=== PATIENT | female | born 1945 | race Caucasian/White ===

== ENCOUNTER 2022-04-30 13:33 | Emergency (ER) | payer MEDICARE, MEDICAID ==
[~2022-04-30] VITALS: Ht 175.3 cm; Wt 90.7 kg
[~2022-04-30 13:33] MED LIST: ACET-1697 PO; ASCO500C14 PO; BISA5TAB PO; FOLI0.8T PO; GABA-488 PO; HYDR-3456 PO; HYDR-700 PO; LVT.1T PO; PARO40TA2 PO; PRIM50TA26 PO; SIMV20TA3 PO; TR1C15 TOP
--- NOTE | 2022-04-30 13:52 | ED Abdominal Pain ---
General Stated Complaint: ABD PAIN Source of Information: Patient Exam Limitations: No Limitations History of Present Illness Date Seen by Provider: Apr 30, 2022 Time Seen by Provider: 13:40 Initial Comments 77-year-old female presents to the emergency department today for epigastric abdominal pain x8 months. She describes it as constant aching sensation in her epigastric region without radiation. No aggravating factors but does states she usually "eat some crackers" and it helps. This has not helped today which was the reason for her presentation to the emergency department. She does endorse some loose stools for the last couple of days but is only going a couple of times per day. No nausea or vomiting. She has been seeing her primary care doctor for it and she states he "just gives me more pills." She states she has not had a CT scan or upper endoscopy to further evaluate. For the last couple of months she has been taking ibuprofen daily for some back pain. She is taking 400 mg 3 times a day. She denies any urinary or vaginal symptoms. She has had her gallbladder removed. Allergies and Home Medications Allergies Coded Allergies: No Known Drug Allergies (Unverified , 11/13/14) Patient Home Medication List Home Medication List Reviewed: Yes Acetaminophen (Acetaminophen) 500 Mg Tablet, 500 MG PO Q4H PRN for PAIN, (Reported) Entered as Reported by: ALCIRA FROST on 11/13/14 1336 Ascorbic Acid (Vitamin C) 500 Mg Capsule.sa, 500 MG PO DAILY, (Reported) Entered as Reported by: ALCIRA FROST on 11/13/14 1336 Bisacodyl (Bisacodyl Laxative) 5 Mg Tablet.dr, 5 MG PO DAILY PRN for CONSTIPATION, (Reported) Entered as Reported by: ALCIRA FROST on 11/13/14 1336 Folic Acid (Folic Acid) 0.8 Mg Tablet, 0.8 MG PO DAILY, (Reported) Entered as Reported by: ALCIRA FROST on 11/13/14 1336 Gabapentin (Gabapentin) 300 Mg Capsule, 300 MG PO BID, (Reported) Entered as Reported by: ALCIRA FROST on 11/13/14 1336 Hydrocodone/Acetaminophen (Vicodin Es 7.5-300 mg Tablet) 1 Each Tablet, 1 TAB PO Q4-6HR PRN for PAIN Prescribed by: LORIN HUTCHISON on 11/23/14 1050 Hydroxyzine Hcl (Hydroxyzine 25 Mg Tablet) 25 Mg Tablet, 25 MG PO BID PRN for ANXIETY, (Reported) Entered as Reported by: ALCIRA FROST on 11/13/14 1336 Levothyroxine Sodium (Levothyroxine 100 Mcg Tab) 100 Mcg Tablet, 100 MCG PO DAILY, (Reported) Entered as Reported by: ALCIRA FROST on 11/13/14 1336 Paroxetine Hcl (Paroxetine Hcl) 40 Mg Tablet, 40 MG PO DAILY, (Reported) Entered as Reported by: ALCIRA FROST on 11/13/14 1336 Primidone (Primidone) 50 Mg Tablet, 150 MG PO BID, (Reported) Entered as Reported by: ALCIRA FROST on 11/13/14 1336 Simvastatin (Simvastatin) 20 Mg Tablet, 20 MG PO HS, (Reported) Entered as Reported by: ALCIRA FROST on 11/13/14 1336 Triamcinolone Acet (Triamcinolone 0.1% Cream) 15 Gm Cr, 0 TOP BID PRN PRN for RASH, (Reported) Entered as Reported by: ALCIRA FROST on 11/13/14 1336 Review of Systems Review of Systems Constitutional: no symptoms reported EENTM: No Symptoms Reported Respiratory: No Symptoms Reported Cardiovascular: No Symptoms Reported Gastrointestinal: Abdominal Pain Genitourinary: No Symptoms Reported Musculoskeletal: no symptoms reported Skin: no symptoms reported Psychiatric/Neurological: No Symptoms Reported Endocrine: No Symptoms Reported Hematologic/Lymphatic: No Symptoms Reported Past Mcmdbia-Fuddct-Csizpc Hx Patient Social History Tobacco Use?: No Use of E-Cig and/or Vaping dev: No Substance use?: No Alcohol Use?: No Past Medical History Arthritis Hypothyroidsim Cataract Anxiety, Depression Family Medical History Reviewed Nursing Family Hx No Pertinent Family Hx Physical Exam Vital Signs Vital Signs - First Documented 04/30/22 13:35 Temp 35.8 Pulse 76 Resp 18 B/P (MAP) 130/65 (86) O2 Delivery Room Air Capillary Refill : Height/Weight/BMI Height: 5'9.00" Weight: 197lbs. oz. [id number]; BMI Method: General Appearance: WD/WN, no apparent distress HEENT: normal ENT inspection, pharynx normal Neck: non-tender, supple Respiratory: chest non-tender, lungs clear, normal breath sounds, no respiratory distress, no accessory muscle use Cardiovascular: regular rate, rhythm, no edema, no murmur Gastrointestinal: normal bowel sounds, soft, no organomegaly, tenderness (Epigastric voluntary guarding. No rebound tenderness. No mass organomegaly. No skin changes.) Progress/Results/Core Measures Results/Orders Lab Results Laboratory Tests Test 04/30/22 13:55 Range/Units White Blood Count 5.8 4.3-11.0 10^3/uL Red Blood Count 4.19 3.80-5.11 10^6/uL Hemoglobin 14.3 11.5-16.0 g/dL Hematocrit 40 35-52 % Mean Corpuscular Volume 96 80-99 fL Mean Corpuscular Hemoglobin 34 25-34 pg Mean Corpuscular Hemoglobin Concent 36 32-36 g/dL Red Cell Distribution Width 12.5 10.0-14.5 % Platelet Count 193 130-400 10^3/uL Mean Platelet Volume 11.0 9.0-12.2 fL Immature Granulocyte % (Auto) 0 % Neutrophils (%) (Auto) 74 42-75 % Lymphocytes (%) (Auto) 19 12-44 % Monocytes (%) (Auto) 6 0-12 % Eosinophils (%) (Auto) 0 0-10 % Basophils (%) (Auto) 1 0-10 % Neutrophils # (Auto) 4.3 1.8-7.8 10^3/uL Lymphocytes # (Auto) 1.1 1.0-4.0 10^3/uL Monocytes # (Auto) 0.4 0.0-1.0 10^3/uL Eosinophils # (Auto) 0.0 0.0-0.3 10^3/uL Basophils # (Auto) 0.0 0.0-0.1 10^3/uL Immature Granulocyte # (Auto) 0.0 0.0-0.1 10^3/uL Sodium Level 138 135-145 MMOL/L Potassium Level 3.4 L 3.6-5.0 MMOL/L Chloride Level 99 98-107 MMOL/L Carbon Dioxide Level 28 21-32 MMOL/L Anion Gap 11 5-14 MMOL/L Blood Urea Nitrogen 15 7-18 MG/DL Creatinine 0.57 L 0.60-1.30 MG/DL Estimat Glomerular Filtration Rate 92 BUN/Creatinine Ratio 26 Glucose Level 122 H 70-105 MG/DL Calcium Level 8.6 8.5-10.1 MG/DL Corrected Calcium 8.4 L 8.5-10.1 MG/DL Total Bilirubin 0.3 0.1-1.0 MG/DL Aspartate Amino Transf (AST/SGOT) 17 5-34 U/L Alanine Aminotransferase (ALT/SGPT) 15 0-55 U/L Alkaline Phosphatase 68 40-136 U/L Total Protein 6.3 L 6.4-8.2 GM/DL Albumin 4.2 3.2-4.5 GM/DL My Orders Orders - ARSALAN MATTHEWS DO Cbc With Automated Diff (04/30/22 13:51) Comprehensive Metabolic Panel (04/30/22 13:51) Ct Abdomen/Pelvis W (04/30/22 13:51) Iohexol Injection (Omnipaque 350 Mg/Ml 1 (04/30/22 14:30) Received Contrast (Hold Metformin- Contr (04/30/22 14:30) Sodium Chloride Flush (Catheter Flush Sy (04/30/22 14:30) Ns (Ivpb) (Sodium Chloride 0.9% Ivpb Bag (04/30/22 14:30) Medications Given in ED Current Medications Medications Dose Ordered Sig/Grace Route Start Time Stop Time Status Last Admin Dose Admin Iohexol 100 ml ONCE ONCE IV 04/30/22 14:30 04/30/22 14:31 DC 04/30/22 14:38 80 ML Sodium Chloride 10 ml NEEDED PRN IV 04/30/22 14:30 04/30/22 14:38 10 ML Sodium Chloride 100 ml ONCE ONCE IV 04/30/22 14:30 04/30/22 14:31 DC 04/30/22 14:38 100 ML Vital Signs/I&O 04/30/22 13:35 Temp 35.8 Pulse 76 Resp 18 B/P (MAP) 130/65 (86) O2 Delivery Room Air Departure Communication (Admissions) Patient is hemodynamically stable. Nonsurgical abdominal exam. Labs are unremarkable. Unfortunately unable to run a lipase at this time as our machine is down for this. CT scan obtained that shows no evidence for pancreatitis visually. Its negative for any other acute abnormalities as well. She is given a GI cocktail and discharged home with recommendations to follow with her primary doctor and discussion of possible GI follow-up given the chronicity of her symptoms. She states understanding. She is discharged in stable condition. Impression Primary Impression: Epigastric abdominal pain Disposition: HOME, SELF-CARE Condition: Stable Departure-Patient Inst. Referrals: [facility] (PCP/Family) Primary Care Physician Patient Instructions: Abdominal Pain, Adult ED Add. Discharge Instructions: Use the Carafate as needed for these types of pains. I recommend you stop taking ibuprofen as this may be related to inflammation lining in your stomach. Keep taking your acid medicine at home. I recommend you talk to your primary doctor about possible GI consultation given that your pain is chronic in nature return to the emergency department for any severe concerns. Scripts Sucralfate (Carafate) 1 Gram Tablet 1 GM PO ACHS for 5 Days, #20 TAB Prov: ARSALAN MATTHEWS DO 04/30/22 ARSALAN MATTHEWS DO Apr 30, 2022 13:52
[2022-04-30 14:00] LABS: BASOPHILS % (AUTO) 1 % (0-10); EOSINOPHILS % (AUTO) 0 % (0-10); HEMATOCRIT 40 % (35-52); HEMOGLOBIN 14.3 g/dL (11.5-16.0); LYMPHOCYTES # (AUTO) 1.1 10^3/uL (1.0-4.0); LYMPHOCYTES % (AUTO) 19 % (12-44); MEAN CORPUSCULAR HEMOGLOBIN 34 pg (25-34); MEAN CORPUSCULAR HGB CONC 36 g/dL (32-36); MEAN CORPUSCULAR VOLUME 96 fL (80-99); MONOCYTES # (AUTO) 0.4 10^3/uL (0.0-1.0); MONOCYTES % (AUTO) 6 % (0-12); NEUTROPHILS # (AUTO) 4.3 10^3/uL (1.8-7.8); NEUTROPHILS % (AUTO) 74 % (42-75); PLATELET COUNT 193 10^3/uL (130-400); WHITE BLOOD COUNT 5.8 10^3/uL (4.3-11.0)
[2022-04-30 14:24] LABS: CALCIUM 8.6 MG/DL (8.5-10.1); CREATININE SERUM 0.57 MG/DL (0.60-1.30); POTASSIUM 3.4 MMOL/L (3.6-5.0)
[2022-04-30 14:25] LABS: ALBUMIN 4.2 GM/DL (3.2-4.5); BILIRUBIN,TOTAL 0.3 MG/DL (0.1-1.0); TOTAL PROTEIN 6.3 GM/DL (6.4-8.2)
[2022-04-30] MEDS ORDERED: HOLD METFORMIN - RECEIVED CONTRAST 20 ML VIAL IV SCH (14:30)
[2022-04-30] MEDS ORDERED: NS 100 ML (IVPB) BAG IV ONE (14:30)
[2022-04-30] MEDS ORDERED: IOHEXOL 350 MG/ML 100 ML (OMNIPAQUE 350) VIAL IV ONE (14:30)
[2022-04-30] MEDS ORDERED: CATHETER FLUSH 10 ML SYR IV PRN (14:30)
--- NOTE | 2022-04-30 14:53 | Diagnostic Imaging Report ---
PROCEDURE: CT abdomen and pelvis with contrast. TECHNIQUE: Multiple contiguous axial images were obtained through the abdomen and pelvis after administration of intravenous contrast. Auto Exposure Controls were utilized during the CT exam to meet ALARA standards for radiation dose reduction. All CT scans use one or more of the following dose optimizing techniques: automated exposure control, MA and/or KvP adjustment based on patient size and exam type or iterative reconstruction. INDICATION: Epigastric pain for 7 days. No prior studies are available for comparison. Imaging through lung bases does show some linear atelectasis or scarring in the left lower lobe. The heart is enlarged. There is a small amount of pericardial fluid present. No discrete liver mass is detected. Gallbladder is surgically absent. No biliary ductal dilatation is identified. Pancreas is atrophic. The spleen is unremarkable. No adrenal mass is identified. Kidneys are unremarkable. Aorta is calcified but nonaneurysmal. Bowel loops are nonobstructed. No free fluid or fluid collection is seen. Appears to be a pedunculated fibroid in the right adnexa measuring 4.8 x 3.7 cm. No inflammatory changes are identified. Bony structures are nonacute. IMPRESSION: No acute abnormality in the abdomen or pelvis is identified. Dictated by: Dictated on workstation # [id number]
[2022-04-30] MEDS ORDERED: SUCR1TAB36 PO (15:03)
[2022-04-30 15:12] VITALS: BP 134/75
[2022-04-30] MEDS ORDERED: LIDOCAINE 2% VISCOUS 15 ML UDC PO ONE (15:15)
[2022-04-30] MEDS ORDERED: ANTACID SUSP 30 ML UDC (MYLANTA) PO ONE (15:15)
[2022-04-30] MEDS ORDERED: SUCRALFATE 1 GM (CARAFATE) TAB PO ONE (15:15)
== END 2022-04-30 15:11 | disposition home or self-care (01) ==
LOC: EDUNIT# 13:33 → ER FS 13:37
DX: R10.13 Epigastric pain (principal)
CPT/HCPCS: 36415; 74177; 80053; 85025; Q9967